=== PATIENT | female | born 1985 | race American Indian/Alaskan Native ===

== ENCOUNTER 2016-07-03 16:12 | Emergency (ER) | payer BC, MEDICAID ==
--- NOTE | 2016-08-11 12:49 | CARD ---
APPROVED REPORT EKG Measurement Heart [id number] <Conclusion> Normal sinus rhythm Normal ECG
== END 2016-07-03 17:45 | disposition home or self-care (01) ==
LOC: C.ER 16:12
DX: J40 Bronchitis, not specified as acute or chronic (principal); R05 Cough